=== PATIENT | female | born 1970 | race Two or more races ===

== ENCOUNTER 2021-03-20 17:45 | Emergency (ER) | payer OTHER ==
[~2021-03-20] VITALS: Ht 167.6 cm; Wt 74.8 kg
--- NOTE | 2021-03-20 18:21 | NUR ---
Patient came in to the er c/o lower back pain s/p pulling out a box of chicken 2 weeks ago at work. On room air, breathing evenly and unlabored. Connected to the monitor and pulse ox. kept comfortable, will continue to monitor accordingly.
[2021-03-20] MEDS ORDERED: KETOROLAC TROMETHAMINE INJ 30 MG/ML VIAL ONE (18:24)
[2021-03-20] MEDS ORDERED: KETOROLAC TROMETHAMINE INJ 30 MG/ML VIAL IM ONE (18:30)
[2021-03-20] MEDS ORDERED: NAPR-1009 PO (19:35)
--- NOTE | 2021-03-20 19:43 | NUR ---
PT is medically stable for d/c per MD. Patient discharged to home in stable condition. Rx and Written and verbal after care instructions given. Patient verbalizes understanding of instruction.
[2021-03-20 19:44] VITALS: BP 138/85
== END 2021-03-20 19:45 | disposition home or self-care (01) ==
LOC: ER 17:45
DX: M54.5 Low back pain (principal); Z79.899 Other long term (current) drug therapy
CPT/HCPCS: 72110; 96372; 99283; J1885